=== PATIENT | female | born 1940 | race Caucasian/White ===

== ENCOUNTER 2024-02-06 10:13 | Outpatient (CLI) | payer BC, MEDICAID, SELFPAY ==
--- NOTE | 2024-02-06 10:28 | CT_ITS ---
WS: [id number] CT chest w con* [id number] HISTORY: COPD TECHNIQUE: Axial imaging performed through the thorax. Coronal and sagittal reformats are submitted. All CT scans at [facility] use at least one of these dose optimization techniques: automated exposure control; mA and/or kV adjustment per patient size (includes targeted exams where dose is mat ched to clinical indication); or iterative reconstruction. CONTRAST: Omnipaque 350; 100 mL IV. DLP: 299.49 mGy.cm COMPARISON: None available. Lungs and central airway: Hyperinflated lungs. Slightly irregular nodule LEFT upper lobe measures 12 x 7 mm. Benign calcifications RIGHT lower lobe. Mild dependent changes at the lung bases. Pleura: Normal. No pleural effusion. Heart and pericardium: Normal size heart with no pericardial effusion. Mediastinum and darcy: There is a soft tissue mass with low signal conforming to the mediastinum measu ring 2.7 x 3.0 cm. There is no enhancement. Vessels: Mild atherosclerosis aorta. No aneurysm. Normal size pulmonary artery. Chest wall and lower neck: Subcutaneous 10 mm mass along the mid LEFT lateral chest wall. Upper abdomen: Intensely enhancing 1.3 x 1.0 cm mass in the lateral RIGHT lobe of the liver. There is an additional well-rounded hypoechoic mass medial segment LEFT lobe measuring 1.7 x 1.9 cm. There ar e a few additional too small to characterize hypodensities within the liver. No adrenal mass. Prior c holecystectomy. Osseous structures: No destructive process. IMPRESSION: 1. No prior CTs are available for comparison. 2. LEFT upper lobe irregular nodule measures 12 x 7 mm. Indeterminate solid pulmonary nodule measuring 12 mm. In a high-risk patient with a solid nodule >8 m m, consider PET/CT or tissue sampling, vs. CT at 3 months. 3. Cystic mass in the anterior mediastinum without enhancement. As per history there is been prior levi rgery of the thymus. There are no comparison studies available at [facility]. 4. Multiple hepatic masses. 1 of these masses is most likely hemangioma. There is an additional liver 1.9 cm indeterminate lesion medial segment LEFT lobe of the liver. A 1.9 cm hypodense left lobe liver lesion has atypical features and is indeterminate for neoplasm. I n a low-risk patient (up to 40 years old, no malignancy, hepatic risk factors or symptoms), follow-up MRI or CT in 6 months is recommended. In an average-risk patient (over 40 years old, no malignancy, but hepatic dysfunction or other hepatic risk factors or symptoms), further evaluation with multi-ph asic MRI or CT is recommended. In a high-risk patient (known primary malignancy with a propensity to metastasize to the liver, cirrhosis, and/or other hepatic risk factors), consider biopsy or other di agnostic or management options.
[2024-02-06] MEDS: iohexol 350 mg/mL 500 mL Btl (per mL) IV (11:11)
== END 2024-02-06 10:14 | disposition home or self-care (01) ==
LOC: RAD 10:23
PROVIDERS: PCP Family Medicine; Visit Provider Family Medicine
DX: J44.9 Chronic obstructive pulmonary disease, unspecified (principal); R16.0 Hepatomegaly, not elsewhere classified; R91.8 Other nonspecific abnormal finding of lung field
CPT/HCPCS: 71260; Q9967

== ENCOUNTER 2024-05-07 06:00 | Outpatient (CLI) | payer MEDICARE, MEDICAID, SELFPAY | END 2024-05-07 06:01 | disposition home or self-care (01) | PROVIDERS: PCP Family Medicine; Visit Provider Internal Medicine Cardiovascular Disease | DX: R06.02 Shortness of breath (principal); R07.9 Chest pain, unspecified; R94.31 Abnormal electrocardiogram [ECG] [EKG] | CPT/HCPCS: 80048; 83880; 93005 ==

== ENCOUNTER 2024-05-30 12:59 | Outpatient (CLI) | payer MEDICARE, MEDICAID, SELFPAY ==
--- NOTE | 2024-05-30 13:00 | CTR_ITS ---
PROCEDURE INFORMATION: Exam: CTA Abdominal Aorta and Bilateral Lower Extremities (Run-off) With Contrast Exam date and time: 05/30/2024 1:38 PM Age: 83 years old Clinical indication: Condition or disease; Other: Aaa, pad; Prior surgery; Surgery date: 6+ months; Surgery type: Thymic cyst, parathryoid tumor removed, hyst; Additional info: Aaa/ pad, aaa/ pad TECHNIQUE: Imaging protocol: Computed tomographic angiography of the of the abdominal aorta, pelvis and bilateral lower extremities with contrast. 3D rendering (Not supervised by radiologist): MIP and/or 3D reconstructed images were created by the technologist. Radiation optimization: All CT scans at this facility use at least one of these dose optimization techniques: automated exposure control; mA and/or kV adjustment per patient size (includes targeted exams where dose is matched to clinical indication); or iterative reconstruction. Contrast material: OMNI 350; Contrast volume: 120 ml; Contrast route: INTRAVENOUS (IV); COMPARISON: CT chest w con* [id number] 02/06/2024 11:02 AM RADIATION DOSE METRICS: Total DLP (mGy-cm): 1404.88 FINDINGS: Aorta: Large amount of aortic wall plaque. This causes 50-69% diameter stenosis in the distal infrarenal abdominal aorta. This causes no more than 30% diameter stenosis in the remainder of the abdominal aorta. Otherwise, unremarkable. Celiac trunk and mesenteric arteries: 50-69% diameter stenosis proximal celiac axis. Otherwise, unremarkable celiac axis. Unremarkable superior mesenteric artery. Greater than 70% diameter stenosis origin of the inferior mesenteric artery. Otherwise, unremarkable FISH. Renal arteries: Unremarkable single left renal artery. Two right renal arteries, both containing proximal 50-69% diameter stenoses. Otherwise, unremarkable right renal arteries. Right iliac arteries: Well expanded stent proximally in the right common iliac artery without associated in stent stenosis. No other hemodynamically significant stenoses in the right common iliac artery. Otherwise, unremarkable right common iliac artery. Unremarkable right internal iliac artery. 50-69% diameter stenosis in the distal right external iliac artery. Otherwise, unremarkable right external iliac artery. Right femoral/popliteal arteries: Unremarkable right common femoral artery. Unremarkable right deep femoral artery. Unremarkable right superficial femoral artery. Unremarkable right popliteal artery. Right infrapopliteal arteries: Unremarkable right tibioperoneal trunk. Unremarkable right posterior tibial artery into the foot. The right peroneal artery is widely patent and is the supply of the widely patent right dorsalis pedis artery. This is a normal congenital variant. Given this, the right anterior tibial artery is small, but normally patent throughout its course in the calf. Left iliac arteries: No hemodynamically significant pathology in the left common iliac artery. Otherwise, unremarkable left common iliac artery. 50-69% diameter stenosis distal left internal iliac artery. No hemodynamically significant stenosis left external iliac artery. Otherwise, unremarkable left external iliac artery. Left femoral/popliteal arteries: Unremarkable left common femoral artery. Unremarkable left deep femoral artery. Unremarkable left superficial femoral artery. Unremarkable left popliteal artery. Left infrapopliteal arteries: Unremarkable left tibioperoneal trunk. Unremarkable left anterior tibial artery. Widely patent and congenitally prominent left peroneal artery supplies the distal left posterior tibial artery, and is widely patent into the plantar arches. This is a normal congenital variant. Given this, as expected, the left posterior tibial artery is small, and patent in the calf. Liver: Several subcentimeter low-density lesions scattered in the liver are unchanged, so are likely small benign cysts. Several small enhancing lesions in the right lobe of the liver are unchanged, so are likely benign. A 2 cm hypodense solid mass in the medial segment of the left lobe of the liver is unchanged, so is probably benign. However, for further characterization these should be followed up with a contrast-enhanced MRI or contrast CT in 6 months. Otherwise, unremarkable. Diaphragm: Small fat containing right Bochdalek hernia. Small amounts of scarring and subsegmental atelectasis in the lung bases. Some of this could conceivably be tiny amounts of pneumonitis. Gallbladder and biliary ducts: Unchanged cholecystectomy. Unchanged unremarkable post cholecystectomy bile ducts. Pancreas: Unremarkable. No mass. No ductal dilation. Spleen: Normal. No splenomegaly. Adrenal glands: Normal. No mass. Kidneys and ureters: Several small renal cysts bilaterally are unchanged, and need no follow-up. Otherwise, unremarkable. Stomach and bowel: Diverticula from the colon. No diverticulitis. Otherwise, unremarkable. Appendix: No evidence of appendicitis. Urinary bladder: Unremarkable. No mass. Reproductive: Hysterectomy. Otherwise, unremarkable. Intraperitoneal space: Unremarkable. No free air. No significant fluid collection. Lymph nodes: No lymphadenopathy. Bones/joints: Mild scoliosis. Mild and moderate multilevel spondylosis. Mild bilateral hip and knee arthritis. Otherwise, unremarkable. Soft tissues: Otherwise, unremarkable visualized body wall. Otherwise, unremarkable soft tissues. CT/CT angio abd aorta runof [id number] IMPRESSION: 1. 50-69% diameter stenosis in the distal infrarenal abdominal aorta. 2. 50-69% diameter stenosis proximal celiac axis. 3. Greater than 70% diameter stenosis origin of the inferior mesenteric artery. 4. Two right renal arteries, both containing proximal 50-69% diameter stenosis. 5. 50-69% diameter stenosis in the distal right external iliac artery. 6. 50-69% diameter stenosis in the distal left internal iliac artery. 7. No other significant pathology in the main arteries of the abdomen and pelvis. 8. No significant arterial pathology in either leg. 9. Multiple small liver lesions detailed above are probably benign, however, these should be followed with a contrast MRI now or a follow-up CT in 6 months. 10. Additional details as above.
[2024-05-30] MEDS: iohexol 350 mg/mL 500 mL Btl (per mL) IV (13:59)
--- NOTE | 2024-05-31 08:30 | USR_ITS ---
PROCEDURE INFORMATION: Exam: US Duplex Bilateral Lower Extremity Arteries Exam date and time: 05/31/2024 9:28 AM Age: 83 years old Clinical indication: Other: Pvd; Additional info: Pad TECHNIQUE: Imaging protocol: Real-time ultrasound scan of the arteries of the bilateral lower extremities with 2-D snyder scale, color Doppler flow and spectral waveform analysis. Images documented and saved. COMPARISON: CT angio abd aorta runof [id number] 05/30/2024 1:38 PM FINDINGS: Right external iliac artery: 50-69% diameter stenosis distal right external iliac artery. Right common femoral artery: No occlusion or significant stenosis. Normal waveform. Right superficial femoral artery: No occlusion or significant stenosis. Normal waveform. Right popliteal artery: No occlusion or significant stenosis. Normal waveform. Right calf/foot arteries: No occlusion or significant stenosis in the visualized arteries. Normal waveforms. Dorsalis pedis artery is patent. Left common femoral artery: No occlusion or significant stenosis. Normal waveform. Left superficial femoral artery: No occlusion or significant stenosis. Normal waveform. Left popliteal artery: No occlusion or significant stenosis. Normal waveform. Left calf/foot arteries: No occlusion or significant stenosis in the visualized arteries. Normal waveforms. Dorsalis pedis artery is patent.
== END 2024-05-30 13:00 | disposition home or self-care (01) ==
PROVIDERS: PCP Family Medicine; Visit Provider Internal Medicine Cardiovascular Disease
DX: I71.43 Infrarenal abdominal aortic aneurysm, without rupture (principal); I73.9 Peripheral vascular disease, unspecified; J44.9 Chronic obstructive pulmonary disease, unspecified; Z98.890 Other specified postprocedural states; I77.4 Celiac artery compression syndrome; K55.1 Chronic vascular disorders of intestine; I74.5 Embolism and thrombosis of iliac artery; K76.89 Other specified diseases of liver; Z90.49 Acquired absence of other specified parts of digestive tract; Q61.02 Congenital multiple renal cysts; Q79.0 Congenital diaphragmatic hernia
CPT/HCPCS: 75635; Q9967

== ENCOUNTER 2024-05-31 08:22 | Outpatient (CLI) | payer MEDICARE, MEDICAID, SELFPAY ==
--- NOTE | 2024-05-31 | USR_ITS ---
PROCEDURE INFORMATION: Exam: US Duplex Bilateral Lower Extremity Arteries Exam date and time: 05/31/2024 9:28 AM Age: 83 years old Clinical indication: Other: Pvd; Additional info: Pad TECHNIQUE: Imaging protocol: Real-time ultrasound scan of the arteries of the bilateral lower extremities with 2-D snyder scale, color Doppler flow and spectral waveform analysis. Images documented and saved. COMPARISON: CT angio abd aorta runof [id number] 05/30/2024 1:38 PM FINDINGS: Right external iliac artery: 50-69% diameter stenosis distal right external iliac artery. Right common femoral artery: No occlusion or significant stenosis. Normal waveform. Right superficial femoral artery: No occlusion or significant stenosis. Normal waveform. Right popliteal artery: No occlusion or significant stenosis. Normal waveform. Right calf/foot arteries: No occlusion or significant stenosis in the visualized arteries. Normal waveforms. Dorsalis pedis artery is patent. Left common femoral artery: No occlusion or significant stenosis. Normal waveform. Left superficial femoral artery: No occlusion or significant stenosis. Normal waveform. Left popliteal artery: No occlusion or significant stenosis. Normal waveform. Left calf/foot arteries: No occlusion or significant stenosis in the visualized arteries. Normal waveforms. Dorsalis pedis artery is patent. US/[place] [id number] IMPRESSION: 1. 50-69% diameter stenosis distal right external iliac artery. 2. No significant pathology in the main arteries of either leg.
--- NOTE | 2024-05-31 | USCV_ITS ---
Amaya Turner Age: 83 Gender: F : 1940 Exam Date: 05/31/2024 08:39 Ordering Phys: Aki Fernandes MD Technologist: CT [place] [facility] [place]ication: copd,murmur BP: 110 / 68 HR: 54 Rhythm: Sinus Technical Quality: Adequate MEASUREMENTS (Male / Female) Normal Values 2D ECHO LVOT Diameter 2.0 cm LV Ejection Fraction MOD 4C 49.0 % LV Ejection Fraction MOD 2C 66.7 % LV Ejection Fraction 2C AL 66.3 % LA Diameter 2.9 cm RA Systolic Volume 4C AL 43.4 ml RA Systolic Volume 4C MOD 41.5 ml LA Sys Volume AL 38.9 cm cubed LA Sys Volume Index AL 22.0 cm cubed/m squared Aorta at Sinotubular Diameter 2.3 cm M-MODE LA Ao Ratio MM 1.4 AV Cusp Separation MM 1.8 cm DOPPLER AV Peak Velocity 104.0 cm/s LVOT Peak Velocity 77.0 cm/s AV Area Cont Eq vti 2.6 cm squared AV Area Cont Eq pk 2.4 cm squared MV Peak Velocity 98.0 cm/s MV Area PHT 3.4 cm squared Mitral E to A Ratio 1.0 TV Peak Velocity 99.7 cm/s TR Peak Velocity 299.0 cm/s TR Peak Gradient 35.8 mmHg TV Peak E Velocity 86.0 cm/s Right Atrial Pressure 8.0 mmHg Pulmonary Artery Systolic Pressu 43.8 mmHg PV Peak Velocity 99.5 cm/s FINDINGS Left Ventricle Normal LV size ejection fraction of 66%.no regional wall motion abnormalities. Right Ventricle The right ventricle is normal in size and function. Right Atrium The right atrium is normal in size. Left Atrium The left atrium is normal in size. Mitral Valve Thickened mitral valve. Trace mitral valve regurgitation. Aortic Valve No gross abnormalities noted Tricuspid Valve Trace tricuspid valve regurgitation. Pulmonic Valve No gross abnormalities noted Pericardium Normal pericardium without effusion. Aorta Normal ascending aorta dimension. IVC The inferior vena cava appears normal. CONCLUSIONS Normal LV size ejection fraction of 66%.no regional wall motion abnormalities. Thickened mitral valve. Trace of mitral and tricuspid regurgitation. There is no pericardial effusion. There are no intracardiac masses. No similar previous studies are available for comparison Dr Aki Fernandes MD FACC (Electronically Signed) Final Date: 03 June 2024 14:44 S
== END 2024-05-31 08:23 | disposition home or self-care (01) ==
LOC: RAD 08:22
PROVIDERS: PCP Family Medicine; Visit Provider Internal Medicine Cardiovascular Disease
DX: I73.9 Peripheral vascular disease, unspecified (principal); I34.81 Nonrheumatic mitral (valve) annulus calcification; I70.8 Atherosclerosis of other arteries; R06.09 Other forms of dyspnea
CPT/HCPCS: 93306; 93925

== ENCOUNTER → 2024-08-05 13:50 | Outpatient (BNVA) | payer MEDICARE, MEDICAID, SELFPAY | PROVIDERS: PCP Family Medicine; Visit Provider Internal Medicine Cardiovascular Disease | DX: I25.10 Atherosclerotic heart disease of native coronary artery without angina pectoris (principal); I70.8 Atherosclerosis of other arteries; I10 Essential (primary) hypertension; I71.43 Infrarenal abdominal aortic aneurysm, without rupture; E78.5 Hyperlipidemia, unspecified; I73.9 Peripheral vascular disease, unspecified; I70.1 Atherosclerosis of renal artery; Z87.891 Personal history of nicotine dependence | CPT/HCPCS: 99214 ==

== ENCOUNTER 2025-01-21 19:10 | Observation (INO) | payer MEDICARE, MEDICAID, SELFPAY ==
[2025-01-21] VITALS (10 sets, daily range): BP systolic 147–185; BP diastolic 55–89; PULSE 61–82; RESP 16–18; TEMP 36.2–36.6; O2SAT 95–100; BMI 23.3
--- NOTE | 2025-01-21 20:42 | ED_ITS ---
HPI - General Adult General: Chief complaint: Airway/Esophagus Foreign Body Stated complaint: foot stuck in throat Time Seen by Provider: 01/21/25 20:33 History of Present Illness: Patient presents to the ER with a piece of chicken stuck in her esophagus since approximately 1830 today. 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 Has food bolus stuck there before. Patient has had 1 surgically removed and thinks it may have came back. Patient is unable to swallow her own secretions. Related Data Home Medications ?Medication ?Instructions ?Recorded ?Confirmed albuterol sulfate 0.63 mg/3 mL 0.63 mg inhalation Q6H 05/07/24 solution for nebulization albuterol sulfate 90 mcg/actuation 1 puff inhalation Q ID 05/07/24 aerosol inhaler alprazolam 0.25 mg tablet 0.125 mg PO TID 05/07/24 diltiazem HCl 120 mg 120 mg PO DAILY 05/07/24 capsule,extended release 24 hr, controlled (DILT-XR) fluticasone fur. 100 mcg-umeclid 1 inh inhalation MYRANDA Y 05/07/24 62.5 mcg-vilant 25 mcg inhalat.powder (Trelegy Ellipta) furosemide 20 mg tablet 20 mg PO DAILY 05/07/24 irbesartan 150 mg tablet 150 mg PO DAILY 05/07/24 prednisolone 5 mg tablet 5 mg PO DAILY 05/07/24 rivaroxaban 15 mg tablet (Xarelto) 15 mg PO DAILY 04/16 01/06 rosuvastatin 20 mg tablet 20 mg PO DAILY 05/07/24 Allergies Allergy/AdvReac Type Severity Reaction Status Date / Time Sulfa (Sulfonamide Allergy Unknown Verified 01/21/25 19:19 Antibiotics) Review of Systems General: Reports: 10 or more systems reviewed and unremarkable except in HPI and below PFSH ED PFSH: Social History Smoking and tobacco/nicotine status: never used tobacco/nicotine Physical Exam Const: COMMON NORMALS: no acute distress, average body habitus, patient oriented x3, no limitations, healthy appearing, alert and well nourished HENMT: COMMON NORMALS: normocephalic, atraumatic, hearing grossly normal bilaterally, external ears normal, Normal external nose present, moist oral mucous membranes and oropharynx normal HEAD & SCALP: normocephalic and atraumatic NOSE: Normal external nose present EXTERNAL EAR: Yes external ears normal Neck/C-Spine: COMMON NORMALS: no JVD Chest: COMMONS NORMALS: normal inspection of the chest and normal palpation of entire chest wall Resp: COMMON NORMALS: normal respiratory effort, No retractions, No use of accessory muscles and clear to auscultation bilaterally AUSCULTATION: clear to auscultation bilaterally Cardio: COMMON NORMALS: no JVD, regular rate, regular rhythm, S1 normal heart sound present, S2 normal heart sound present, No gallops present (Cardio), No cl icks present (Cardio), No murmurs present (Cardio) and No rub (Cardio) RATE: regular rate RHYTHM: regular rhythm HEART SOUNDS: S1 normal heart sound present and S2 normal heart sound present GI: COMMON NORMALS: Normal to inspection, nondistended, normoactive bowel sounds present, Soft to palpation, non-tender, No hepatosplenomegaly present and no masses PALPATION: Yes Soft to palpation and Yes No hepatosplenomegaly present Neuro: COMMON NORMALS: patient oriented x3 SENSORIUM/ORIENTATION: Yes alert Course Vital Signs: Vital signs: Vital Signs Temperature 98.6 F 01/22/25 00:44 Pulse Rate 88 01/22/25 00:44 Respiratory Rate 15 01/22/25 00:44 Blood Pressure 188/79 01/22/25 00:44 Pulse Oximetry 95 01/22/25 00:44 Oxygen Delivery Me thod Nasal Cannula 01/21/25 23:40 Oxygen Flow Rate 2 01/22/25 00:44 MDM - General Adult Medical Decision Making Dr. Cordon was consulted he is a go ahead and try the glucagon but also call in the Endo team and he will take her to the Endo lab. All radiology interpretation(s) finalized by discharge Discharge Plan Discharge Patient Disposition: Admitted As Inpatient Admit Provider: Bill Cordon Clinical Impression: Esophageal obstruction due to food impaction Condition: Stable Coding Level of Care Code ED Shift Superintendent Caustic Cresylate for Lyndon Palacios
[2025-01-21] MEDS: glucagon 1 mg/mL KIT 1 mL IVP (20:54)
--- NOTE | 2025-01-21 21:23 | P.HP_ITS ---
Providers/Chief Complaint Primary Care Provider: Markos Barillas MD Chief Complaint: food stuck in throat History of Present Illness Amaya Turner is a 84 year old female who presents with an impacted food bolus. Patient reports eating chicken and subsequently developing dysphagia and odynophagia. Per patient she had a Zenker's diverticulum that was treated operatively. No other relevant medical history. Medications/Allergies Home Medications ?Medication ?Instructions ?Recorded ?Confirmed ?Last Taken ?Type albuterol sulfate 0.63 mg/3 mL 0.63 mg inhalation Q6H 05/07/24 Unknown History solution for nebulization albuterol sulfate 90 mcg/actuation 1 puff inhalation Q ID 05/07/24 Unknown History aerosol inhaler alprazolam 0.25 mg tablet 0.125 mg PO TID 05/07/24 Un known History diltiazem HCl 120 mg 120 mg PO DAILY 05/07/24 Un known History capsule,extended release 24 hr, controlled (DILT-XR) fluticasone fur. 100 mcg-umeclid 1 inh inhalation MYRANDA Y 05/07/24 Unknown History 62.5 mcg-vilant 25 mcg inhalat.powder (Trelegy Ellipta) furosemide 20 mg tablet 20 mg PO DAILY 05/07/24 Unk nown History irbesartan 150 mg tablet 150 mg PO DAILY 05/07/24 Un known History prednisolone 5 mg tablet 5 mg PO DAILY 05/07/24 Unkn own History rivaroxaban 15 mg tablet (Xarelto) 15 mg PO DAILY 04/16 01/06 Unknown History rosuvastatin 20 mg tablet 20 mg PO DAILY 05/07/24 Unk nown History Allergies Allergy/AdvReac Type Severity Reaction Status Date / Time Sulfa (Sulfonamide Allergy Unknown Verified 01/21/25 19:19 Antibiotics) PFSH Acute PFSH: Social History Smoking and tobacco/nicotine status: never used tobacco/nicotine Vitals/I&O/Wt Last Vital Signs Temp 97.9 F 01/21/25 19:13 Pulse 77 01/21/25 20:55 Resp 16 01/21/25 20:55 BP 166/89 01/21/25 20:55 Pulse Ox 97 01/21/25 20:55 O2 Del Method Room Air 01/21/25 20:55 Weight last 48 hrs Weight 140 lb Physical Exam Narrative: Chest: Unlabored breathing room air. No lymphadenopathy. Heart: Regular rate and rhythm. Abdomen: Soft, nontender, nondistended. No masses or lymphadenopathy. A&P Assessment and plan (1) Esophageal obstruction due to food impaction: Plan 84-year-old female who presented with an impacted food bolus. Discussed risk and benefits of patient agrees to proceed with EGD and food bolus disimpaction. Will keep for ops less than 48 hours for pain control with IV pain meds and serial physical exams. PDMP PDMP Reviewed: Not Reviewed Attestations Medical Necessity Statement*: [place] 46 our office for serial physical exams, p.o. trial, IV pain meds Coding Level of Care Code 13459 Diagnoses Esophageal obstruction due to food impaction T18.128A; [id number]
--- NOTE | 2025-01-21 21:27 | ANES.PREANE2 ---
Pre-Anesthetic Assessment Height/Weight: Height 5 ft 5 in Weight 140 lb Temp Pulse Resp BP Pulse Ox O2 Del Method 97.9 F 77 16 166/89 97 Room Air 01/21/25 19:13 01/21/25 20:55 01/21/25 20:55 01/21/25 20:55 01/21/25 20:55 01/21/25 20:55 Preop Diagnosis: Food bolus Operation Date: 01/21/25 21:30 Proposed Procedures p EGD W/POS FOREIGN BODY REMOVAL(Not Applicable) - Bill Cordon MD Was Beta Afia taken within 24 hours: N/A Was Clonidine taken within 24 hours: N/A Social No alcohol and No tobacco Exam alert, oriented x 3, clear to auscultation bilaterally and regular rate & rhythm Airway Submandibular: within normal limits Cervical ROM: within normal limits Mallampati: Class III Dentition: full Anesthetic Plan ASA status: 3E Anesthesia: General Other: No prior issues with anesthesia Patient presents with chicken stuck in the back of his throat, prior Zenker diverticulum AAA, watchful management at this time PAD COPD, controlled with inhalers 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 100 mcg-umeclid 1 inh inhalation DAILY 05/07/24 Unknown History 62.5 mcg-vilant 25 mcg inhalat.powder (Trelegy Ellipta) furosemide 20 mg tablet 20 mg PO DAILY 05/07/24 Unknown History irbesartan 150 mg tablet 150 mg PO DAILY 05/07/24 Unknown History prednisolone 5 mg tablet 5 mg PO DAILY 05/07/24 Unknown History rivaroxaban 15 mg tablet (Xarelto) 15 mg PO DAILY 05/07/24 Unknown History rosuvastatin 20 mg tablet 20 mg PO DAILY 05/07/24 Unknown History Allergies Allergy/AdvReac Type Severity Reaction Status Date / Time Sulfa (Sulfonamide Allergy Unknown Verified 01/21/25 19:19 Antibiotics) [facility] Anesthesia Social History Smoking and tobacco/nicotine status: never used tobacco/nicotine Data Anesthesia Cardiac Studies: Echocardiogram 05/31/24
[2025-01-22 00:22] VITALS: BP 142/64
[2025-01-22 00:44] VITALS: BP 188/79; PULSE 88; RESP 15; TEMP 37; O2SAT 95
[2025-01-22 04:25] VITALS: BP 149/72; PULSE 77; RESP 16; TEMP 36.6; O2SAT 97; BMI 23.3
--- NOTE | 2025-01-22 07:03 | PM.PN ---
Subjective Subjective: No pain Tolerating liquids Abdomen soft Vitals/I&O/Wt Last Vital Signs Temp 97.8 F 01/22/25 04:25 Pulse 77 01/22/25 04:25 Resp 16 01/22/25 04:25 BP 149/72 01/22/25 04:25 Pulse Ox 97 01/22/25 04:25 O2 Del Method Nasal Cannula 01/21/25 23:40 O2 Flow Rate 2 01/22/25 00:44 01/21/25 01/22/25 01/22/25 22:59 06:59 14:59 Intake Total 400 / 400 240 / 640 Output Total 0 / 0 Balance 400 / 400 240 / 640 Weight last 48 hrs Weight 140 lb Weight 140 lb Weight 140 lb Physical Exam Narrative: Chest: Unlabored breathing room air. No lymphadenopathy. Heart: Regular rate and rhythm. Abdomen: Soft, nontender, nondistended. No masses or lymphadenopathy. A&P Assessment and plan (1) Esophageal obstruction due to food impaction: Plan 84-year-old female who presented with a food bolus impaction. Status post disimpaction. Pain-free. Able to swallow. Discharging. PDMP PDMP Reviewed: Not Reviewed Attestations Medical Necessity Statement*: Needed less than 48 hours observation due to serial physical exams, IV pain meds, p.o. trial Coding Level of Care Code 61738 Diagnoses Esophageal obstruction due to food impaction T18.128A; W44.F3XA
--- NOTE | 2025-01-22 07:03 | PM.DCS ---
Discharge Providers Date of Admission: 01/21/25 21:35 Date of Discharge: January 22, 2025 Attending Provider at Admission: Bill Cordon MD Attending Provider at Discharge: Bill Cordon MD Primary Care Provider: Markos Barillas MD Diagnoses at Discharge Discharge Diagnosis (1) Esophageal obstruction due to food impaction: Status: Acute Reason for Visit Reason for Visit: food stuck in throat Hospital Course Hospital Course 84-year-old female with a history of Zenker's diverticulum who presented with a food bolus impaction in the esophagus. Patient complain of odynophagia dysphagia and profuse salivating. Took to GI lab and performed EGD with food bolus disimpaction. Successfully coursed food bolus into the stomach. Patient stayed overnight for serial physical exam as well as IV pain meds and p.o. trial. Patient tolerated well. Patient being discharged in the morning the day after. Physical Exam Narrative: Chest: Unlabored breathing room air. No lymphadenopathy. Heart: Regular rate and rhythm. Abdomen: Soft, nontender, nondistended. No masses or lymphadenopathy. Discharge Data Vitals Last Vital Signs Temp 97.8 F 01/22/25 04:25 Pulse 77 01/22/25 04:25 Resp 16 01/22/25 04:25 BP 149/72 01/22/25 04:25 Pulse Ox 97 01/22/25 04:25 O2 Del Method Nasal Cannula 01/21/25 23:40 O2 Flow Rate 2 01/22/25 00:44 Discharge Plan Discharge Patient Disposition: Home Condition: Stable Prescriptions: Continued albuterol sulfate 90 mcg/actuation HFA aerosol inhaler 1 puff inhalation QID diltiazem HCl [DILT-XR] 120 mg capsule,ext.rel 24h degradable 120 mg PO DAILY furosemide 20 mg tablet 20 mg PO DAILY prednisolone 5 mg tablet 5 mg PO DAILY rosuvastatin 20 mg tablet 20 mg PO DAILY Trelegy Ellipta 100-62.5-25 mcg blister with device 1 inh inhalation DAILY Xarelto 15 mg tablet 15 mg PO DAILY Rx Instructions: must administer with evening meal irbesartan-hydrochlorothiazide 150-12.5 mg tablet 1 tab PO DAILY Discharge Orders: Discharge Order (Routine); Ordered 01/22/25 Ordered By: Bill Cordon Referrals: Bill Cordon MD [Physician] - 2 weeks Markos Barillas MD [Primary Care Provider] - Discharge Diet: Advance as tolerated Discharge Activity: Resume usual activity Patient Instructions: Opioid Safety Discharge Attestations Time Spent in Discharge Care*: greater than 30 min Quality Metrics Clinical Quality Measures [ No reported AMI, CVA or VTE this stay] Coding Level of Care Code Acute Code for Chg Fwd Diagnoses Esophageal obstruction due to food impaction T18.128A; W44.F3XA
[2025-01-22 07:39] VITALS: BP 169/71; PULSE 83; RESP 17; TEMP 36.4; O2SAT 92
--- NOTE | 2025-01-22 08:51 | PC.NURSE ---
This nurse called patients daughter, Robyn, to inform her she would be discharging as pt states this is her ride home. No answer. This nurse left a message on machine.
--- NOTE | 2025-01-22 09:30 | PC.CHAP ---
Pastoral Care Encounter/Spiritual Assessment Type of Contact [] Declined invoice control clerk visit [] Patient/Family/Request visit [] Outpatient visit [] Follow-up visit [] Physician referral [] Code/Alert [] Routine visit [] Staff referral [] Actively dying [] Patient sleeping [] Family support [] [x] Out of room [] Palliative care [] [] Receiving care in room [] Pre-surgical visit [] Trauma [] Long length of stay [] ICU visit [] Other: Relational/Emotional Strength [] Patient feels connected with others/family/visitors/staff [] Distress [] Loneliness/isolation [] Abandonment Spirituality of Patient [] Person of [place] [] Attends Jehov[employer] Witness of their [place] [] Believes in Prayer [] Reads Bible or Yazidi materials [] There are Spiritual issues to be addressed Doctor Podiatric Medicine Interventions [] Prayer [] Active listening [] Non-anxious presence [] Spiritual/emotional support [] Crisis/trauma care [] Spiritual counseling [] Bereavement support [] Provided bereavement packet [] Provided Bible/devotional materials [] Provided toy/stuffed animal, coloring book to patient or family member [] Provided Communion [] Anointing/[place] [] Salvation [] Completed spiritual assessment [] Other: Impact on Illness or Injury [] Angry [] Fearful [] Anxious [] Often cries [] Exhaustion [] Unable to work [] Unable to attend protestant [] Unable to walk/stand [] Unable to read [] Unable to drive [] Unable to eat/drink [] Unable to sleep [] Unable to be with family [] Patient intubated [] Other: Summary Time spent with patient
== END 2025-01-22 10:07 | disposition home or self-care (01) ==
LOC: ER 21:15 → GILAB 21:32 → MEDSURG 21:47
PROVIDERS: Admitting Provider Student in an Organized Health Care Education/Training Program; Emergency Provider Emergency Medicine; PCP Family Medicine; Visit Provider Student in an Organized Health Care Education/Training Program
PROC: 0DJ08ZZ Inspection of Upper Intestinal Tract, Via Natural or Artificial Opening Endoscopic (ICD-10-PCS; principal; 2025-01-21 21:30)
DX: T18.128A Food in esophagus causing other injury, initial encounter (principal); W44.F3XA Food entering into or through a natural orifice, initial encounter; K22.5 Diverticulum of esophagus, acquired
CPT/HCPCS: 43247; 96361; 96374; 99285; G0378; J0330; J1610; J2704; J9999

== ENCOUNTER → 2025-04-07 10:39 | Outpatient (BNVA) | payer MEDICARE, MEDICAID, SELFPAY | PROVIDERS: PCP Family Medicine; Visit Provider Nurse Practitioner Family | DX: I71.43 Infrarenal abdominal aortic aneurysm, without rupture (principal); I25.10 Atherosclerotic heart disease of native coronary artery without angina pectoris; I10 Essential (primary) hypertension; E78.5 Hyperlipidemia, unspecified; I73.9 Peripheral vascular disease, unspecified; I70.0 Atherosclerosis of aorta; I70.8 Atherosclerosis of other arteries | CPT/HCPCS: 99214 ==

== ENCOUNTER 2025-04-14 08:51 | Outpatient (CLI) | payer MEDICARE, MEDICAID, SELFPAY ==
--- NOTE | 2025-04-14 09:00 | USCV_ITS ---
Amaya Turner Age: 84 Gender: F : 1940 Exam Date: 04/14/2025 09:09 Ordering Phys: Bibiana Everett Technologist: [employer] Exam Location: [facility] [place] Indication: AAA HISTORY: Diameter (cm) AP x Transverse x Length Velocity (cm/s) Waveform Prox Aorta: 0.98 x 1.61 x 91.50 Triphasic Mid Aorta: 1.40 x 1.40 x 78.50 Triphasic Distal Aorta: 1.90 x 2.12 x 53.10 Triphasic Right Iliac Prox: 0.77 x 0.88 x 133.00 Triphasic Left Iliac Prox: 0.53 x 0.63 x 95.80 Triphasic Stent Prox Landing x x Aneurysmal Sac Max x x Lt Lat Sac Dim Rt Lat Sac Dim Stent Dist Landing x x Right Iliac Stent x x Left Iliac Stent x x Right Renal Art Left Renal Art FINDINGS: CONCLUSIONS Distal aorta measures 1.9 x 2.1cm AP x trans Mild atheromatous plaque Normal proximal iliac arteries Kye Jackson MD (Electronically Signed) Final Date: 14 April 2025 12:10 S
== END 2025-04-14 08:52 | disposition home or self-care (01) ==
LOC: RAD 08:53
PROVIDERS: PCP Family Medicine; Visit Provider Nurse Practitioner Family
DX: I71.43 Infrarenal abdominal aortic aneurysm, without rupture (principal)
CPT/HCPCS: 93978